=== PATIENT | male | born 1945 | race Caucasian/White ===

== ENCOUNTER → 2024-02-16 10:26 | Outpatient (REF) | payer MEDICARE, OTHER, SELFPAY | LOC: RCS 10:26 | PROVIDERS: ATTENDING PHYSICIAN Internal Medicine Cardiovascular Disease | DX: I34.0 Nonrheumatic mitral (valve) insufficiency (principal); I47.10 Supraventricular tachycardia, unspecified; R00.2 Palpitations; R07.89 Other chest pain | CPT/HCPCS: 93017; 93350 ==

== ENCOUNTER 2025-01-19 09:02 | Emergency (ER) | payer MEDICARE, OTHER, SELFPAY ==
[2025-01-19] VITALS (9 sets, daily range): BP systolic 153–182; BP diastolic 75–85; BMI 21.8
[2025-01-19 09:36] LABS: % Basophils 0.8 % (0-2); % Eosinophils 4.9 % (0-6); % Immature Granulocytes 0.4 % (0-0.5); % Lymphocytes 15.9 % (20.5-51.1); Absolute Eosinophils 0.3 10^3/uL (0-0.7); Absolute Lymphocytes 0.8 10^3/uL (1.2-3.4); Absolute Monocytes 0.5 10^3/uL (0.1-0.6); Absolute Neutrophils 3.6 10^3/uL (1.4-6.5); Hemoglobin 13.6 g/dL (13.0-18.0); Mean Corp Hgb Conc. 35.8 g/dL (33.0-37.0); Mean Corpuscular Hgb 35.1 pg (27.0-31.0); Mean Corpuscular Volume 98.2 fL (80.0-94.0); Mean Platelet Volume 8.6 fL (7.4-10.4); Nucleated Red Blood Cells % 0 % (-); Platelet Count 326 10^3/uL (130-400); Red Blood Cell Count 3.87 10^6/uL (4.70-6.10); Red Cell Dist. Width 14.9 % (11.5-14.5); White Blood Cell Count 5.3 10^3/uL (4.8-10.8)
--- NOTE | 2025-01-19 09:48 | ED.GENMED ---
History of Present Illness
General
Chief Complaint: Flank Pain
Source: patient
Time Seen by Provider: 01/19/25 09:13
History of Present Illness
History of Present Illness:
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 He describes this as a sudden onset of severe sharp shooting pain in his R flank radiating to his R groin. It's pretty
constant and worse with movement. There is associated nausea since onset of pain but no vomiting. He initially thought this to be a muscle spasm. He denies fevers, chest pain, shortness of breath, abdominal pain, vomiting, constipation, diarrhea,
dysuria, hematuria or hematochezia.
Review of Systems
Review of Systems
All Other Systems: ROS reviewed and negative except as documented in HPI and ROS
Constitutional: Reports no symptoms
EENT: Reports no symptoms
Respiratory: Reports no symptoms
Cardiac: Reports no symptoms
ABD/GI: Reports nausea
: Reports flank pain
Musculoskeletal: Reports back pain
Skin: Reports no symptoms
Neurological: Reports no symptoms
Endocrine: Reports no symptoms
Hematologic/Lymphatic: Reports no symptoms
Psychiatric: Reports no symptoms
Phy Exam
General Physical Exam
General Presentation: well appearing and no apparent distress
General age: appears stated age
General Habitus: normal and elderly
General Mental: alert
General Hydration: appears well hydrated
Cardiovascular Exam
Cardiovascular Exam: regular rate/rhythm and bradycardia
Heart Sounds: normal
Pulmonary Exam
Pulmonary Exam: lungs clear (Flank pain with inspiration) and no respiratory distress
Gastrointestinal Exam
Gastrointestinal Exam: normal bowel sounds, soft, no organomegaly, non distended and cva tenderness (Right)
Palpation: right upper quadrant: Minimal tenderness and right lower quadrant: Minimal tenderness
Auscultation of Abdomen: normal
Course
Orders/Labs/Results
Orders:
Orders
01/19/25 09:25
Complete Blood Count/With Diff Urgent
Comprehensive Metabolic Panel Urgent
01/19/25 10:06
CT Abd/pel Without Iv Or Oral Urgent
Comment:
Reason For Exam: r flank
0.9% Sodium Chloride 500 ml [Nss] 500 ml IV BOLUS
Ondansetron Injectable [Zofran] 4 mg IV NOW STA
01/19/25 10:07
HYDROmorphone [Dilaudid] 0.5 mg IV NOW STA
01/19/25 10:31
Urinalysis Reflex To Culture Urgent
Date Specimen was Collected: 01/19/25
Time Specimen was Collected: 10:31
Urine Microscopic Reflex Cult Urgent
01/19/25 11:25
HYDROmorphone [Dilaudid] 0.5 mg .ROUTE .STK-MED ONE
01/19/25 11:26
HYDROmorphone [Dilaudid] 0.5 mg IV NOW STA
01/19/25 14:17
Oxycodone [Roxicodone] 5 mg .ROUTE .STK-MED ONE
01/19/25 14:19
Oxycodone [Roxicodone] 5 mg PO NOW STA
Abnormal Lab Results
01/19/25 01/19/25
09:25 10:31
RBC 3.87 L 10^6/uL
(4.70-6.10)
Hct 38.0 L %
(39.0-52.0)
MCV 98.2 H fL
(80.0-94.0)
MCH 35.1 H pg
(27.0-31.0)
RDW 14.9 H %
(11.5-14.5)
Absolute Lymphs (auto) 0.8 L 10^3/uL
(1.2-3.4)
Lymphocytes % 15.9 L %
(20.5-51.1)
Monocytes % 10.0 H %
(1.7-9.3)
Sodium 134 L mmol/L
(135-145)
BUN 25 H mg/dl
(9-20)
Urine Albumin (Reflex) 1+ A
(Neg - Trace)
01/19/25 09:25
01/19/25 09:25
Vital Signs
Initial and Last Documented VS:
Initial Vital Signs
Temp Pulse Resp BP Pulse Ox
97.6 F 55 18 182/79 97
01/19/25 09:11 01/19/25 09:11 01/19/25 09:11 01/19/25 09:11 01/19/25 09:11
Last Documented Vital Signs
Temp Pulse Resp BP Pulse Ox
97.6 F 57 17 167/85 97
01/19/25 09:11 01/19/25 13:16 01/19/25 10:28 01/19/25 13:00 01/19/25 13:16
MDM/Problems Addressed
MDM/Problems Addressed:
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 Vitals signs stable. R CVA tenderness on exam. Pain improved with Dilaudid. CT abd/pelvis revealed '4 mm calculus at
the right ureterovesical junction with associated mild to moderate right hydroureteronephrosis. Partially calcified exophytic upper pole right renal mass measures up to 7.2 cm, highly suspicious for neoplasm.' Nephrology notified. Pt has appt next
week.
*Critical Care Note
Total Time (30-74mins, 75-104mins- exclusive of procedures): Not Applicable
ED Attending Note
-
Portions of this chart may have been created with voice recognition software.� Occasional wrong word or��sound alike� substitutions may have occurred due to the inherent limitations of voice recognition software.
Discharge Plan
Departure
Patient Disposition: Home (Routine Discharge)
Date of Disposition: 01/19/25
Time of Disposition: 14:11
Patient with high blood pressure during this ER visit?: No
Discharge Problem:
Kidney stone on right side
Instructions: Kidney Stones (DC), BLOOD PRESSURE
Prescriptions:
New
oxycodone 5 mg tablet
5 mg PO Q6H PRN (Reason: Pain) Qty: 12 0RF
No Action
meloxicam 15 MG tablet
15 mg PO DAILY
methotrexate sodium 2.5 MG tablet
15 mg PO .WEEKLY WED
cholecalciferol (vitamin D3) [Vitamin D3] 1,000 UNIT capsule
1,000 unit PO DAILY
[id number] [Rheumate (with Quatrefolic)] 1 EACH capsule
1 ea PO DAILY
mupirocin 1 APPLIC ointment
1 applic intranasal BID Qty: 1 0RF
sennosides [senna] 1 TABLET tablet
2 tab PO BID 0RF
acetaminophen 325 MG tablet
650 mg PO QID 0RF
magnesium hydroxide 30 ML suspension
30 ml PO DAILYPRN PRN (Reason: constipation) 0RF
aspirin 325 MG tablet,delayed release (DR/EC)
325 mg PO DAILY 0RF
docusate sodium 100 MG capsule
100 mg PO BID 0RF
diazepam 5 MG tablet
5 mg PO TIDPRN PRN (Reason: spasm) Qty: 30 0RF
oxycodone 5 MG tablet
5 mg PO Q4HPRN PRN (Reason: moderate-severe pain) Qty: 35 0RF
Rx Instructions:
dx ROB
ongoing therapy
1 tab moderate pain or 2 if pain severe
lisinopril 20 MG tablet
20 mg PO BID Qty: 0 0RF
Rx Instructions:
hold systolic blood pressure <130
amlodipine 5 MG tablet
5 mg PO DAILY Qty: 1 0RF
Rx Instructions:
hold systolic blood pressure <130
famotidine 20 MG tablet
20 mg PO HS Qty: 30 0RF
Referrals:
Gill Lua CRNP [Family Provider, Internal Medicine]
Radu Valle MD [Active, Urology]
Activity Restrictions/Additional Instructions:
Follow up with Dr. Valle regarding both the kidney stone but also the right kidney mass seen on CT. Return to ER if you develop a fever before you pass the stone.
Interventions
Interventions:
*Risk Screen - Suicide Last Done: 01/19/25 09:11
*General Assessment Last Done: 01/19/25 09:11
*Neglect/Abuse Screening Last Done: 01/19/25 09:11
*ED- Fall Risk Assessment Last Done: 01/19/25 09:18
*ED COVID-19 Vaccine History Last Done: 01/19/25 09:18
UV-Eaawar-Gxihgbuvgq Assessment Last Done: 01/19/25 10:45
ED-Male Genitourinary Assessment Last Done: 01/19/25 10:35
Discharge Date and Time
Print Language: FIJIAN
[2025-01-19 09:51] LABS: ALT (SGPT) 27 U/L (0-50); AST (SGOT) 33 U/L (17-59); Albumin 4.5 g/dl (3.5-5.0); Alkaline Phosphatase 38 U/L (38-126); Blood Urea Nitrogen 25 mg/dl (9-20); Carbon Dioxide 23 mmol/L (22-30); Chloride 104 mmol/L (98-107); Estimated Creatinine Clearance 57 ml/min; Glucose 93 mg/dl (70-99); Potassium 4.8 mmol/L (3.5-5.1); Sodium 134 mmol/L (135-145); Total Bilirubin 0.5 mg/dl (0.2-1.3); Total Protein 6.6 g/dl (6.3-8.2); eGFR > 60.00
[2025-01-19] MEDS: DILAUDID 0.5 MG IV ×2 (10:25→11:26)
[2025-01-19] MEDS: NSS 500 IV (10:25)
[2025-01-19] MEDS: ZOFRAN 4 MG IV (10:28)
[2025-01-19 10:53] LABS: Urine Albumin 1+ (Neg - Trace); Urine Bilirubin Negative (Negative); Urine Character Clear (Clear); Urine Color Yellow; Urine Glucose Negative (Negative); Urine Ketone Negative (Negative); Urine Leukocyte Negative (Negative); Urine Nitrite Negative (Negative); Urine Occult Blood Negative (Negative); Urine Urobilinogen Negative (Neg - 1+)
[2025-01-19 11:21] LABS: Urine Red Blood Cell 0-2 /HPF (0-2); Urine Squamous Cell 0-2 /LPF (Few)
[2025-01-19 11:22] LABS: Urine White Cell 0-2 /HPF (0-5)
[2025-01-19] MEDS: ROXICODONE 5 MG PO (14:20)
== END 2025-01-19 15:00 | disposition home or self-care (01) ==
LOC: EMR 09:02
PROVIDERS: EMERGENCY PHYSICIAN Emergency Medicine; FAMILY PHYSICIAN Nurse Practitioner Family
DX: N13.2 Hydronephrosis with renal and ureteral calculous obstruction (principal); M06.9 Rheumatoid arthritis, unspecified; I10 Essential (primary) hypertension; N28.89 Other specified disorders of kidney and ureter
CPT/HCPCS: 99284; 96374; 96375; 96376; 96361; 74176; 80053; 81003; 81015; 85025

== ENCOUNTER → 2025-01-27 09:45 | Outpatient (REF) | payer MEDICARE, OTHER, SELFPAY | LOC: MRI 09:45 | PROVIDERS: ATTENDING PHYSICIAN Urology | DX: N28.89 Other specified disorders of kidney and ureter (principal) | CPT/HCPCS: 74183; A9575 ==

== ENCOUNTER → 2025-01-30 10:26 | Outpatient (REF) | payer MEDICARE, OTHER, SELFPAY | LOC: RAD 10:26 | PROVIDERS: ATTENDING PHYSICIAN Urology | DX: N28.89 Other specified disorders of kidney and ureter (principal) | CPT/HCPCS: 71046; 78708; A9539 ==

== ENCOUNTER → 2025-02-22 10:19 | Outpatient (REF) | payer MEDICARE, OTHER, SELFPAY | LOC: RCS 10:19 | PROVIDERS: ATTENDING PHYSICIAN Hospitalist | DX: R06.02 Shortness of breath (principal) | CPT/HCPCS: 93306 ==

== ENCOUNTER → 2025-03-14 07:40 | Outpatient (REF) | payer MEDICARE, OTHER, SELFPAY | LOC: RCS 07:40 | PROVIDERS: ATTENDING PHYSICIAN Internal Medicine Cardiovascular Disease; FAMILY PHYSICIAN Hospitalist | DX: Z01.818 Encounter for other preprocedural examination (principal); R06.02 Shortness of breath; R07.89 Other chest pain; R26.2 Difficulty in walking, not elsewhere classified | CPT/HCPCS: 78452; 93017; A9500; J2785 ==

== ENCOUNTER → 2025-03-14 12:09 | Outpatient (REF) | payer MEDICARE, OTHER, SELFPAY | LOC: SDSPAT 12:09 | PROVIDERS: ATTENDING PHYSICIAN Urology; FAMILY PHYSICIAN Hospitalist | DX: N28.89 Other specified disorders of kidney and ureter (principal) | CPT/HCPCS: 36415; 86850; 86900; 86901 ==

== ENCOUNTER → 2025-03-21 12:51 | Outpatient (REF) | payer MEDICARE, OTHER, SELFPAY | LOC: RSP 12:51 | PROVIDERS: ATTENDING PHYSICIAN Hospitalist | DX: R00.2 Palpitations (principal); R06.02 Shortness of breath | CPT/HCPCS: 93225; 93226; 94010 ==

== ENCOUNTER 2025-03-30 06:20 | Day surgery (SDC) | payer MEDICARE, OTHER, SELFPAY ==
[2025-03-14 14:08] VITALS: BMI 20.6
[2025-03-30] VITALS (19 sets, daily range): BP systolic 114–143; BP diastolic 65–91; BMI 20.6
[2025-03-30 10:44] LABS: B.E. - POC -3.4 mmol/L; Glucose - POC 153 mg/dl (70-99); HCO3 - POC 25 mmol/L (21-28); Hematocrit - POC 35 % PCV (42-52); Hemodilution- POC Yes; Hemoglobin Calculated - POC 12.0; Ionized Calcium - POC 1.22 mmol/L (1.15-1.33); Lactate - POC < 0.30 mmol/L (0.36-0.75); O2 Saturation %Calculated-POC 99.7 % (94-98); PCO2 - POC 62 mmHg (35-48); PO2 - POC 243 mmHg (83-108); Potassium - POC 4.5 mmol/L (3.5-5.1); Sodium - POC 138 mmol/L (136-145); Specimen Type - POC Arterial; pH - POC 7.22 (7.35-7.45)
--- NOTE | 2025-03-30 12:23 | W.IMMPOSTOP ---
Surgical Immed Post Op Note
-
Primary Surgeon: Tori
Assisting Surgeon: none
Pre-op Diagnosis: R renal mass
Post-op Diagnosis: same
Procedure Performed: Robotic R partial nephrectomy
Anesthesia Type: general
Specimen / Cultures: R renal mass
Estimated Blood Loss: 30cc
Complications: none
Operative Findings: negative deep margin frozen section
[2025-03-30] MEDS: DILAUDID 0.5 MG IV (13:20)
[2025-03-30 13:26] LABS: Hematocrit 33.8 % (39.0-52.0); Hemoglobin 11.9 g/dL (13.0-18.0); Mean Corp Hgb Conc. 35.2 g/dL (33.0-37.0); Mean Corpuscular Volume 98.5 fL (80.0-94.0); Platelet Count 250 10^3/uL (130-400); Red Cell Dist. Width 14.5 % (11.5-14.5)
--- NOTE | 2025-03-30 13:34 | PTCARENOTE ---
1327 Left a-line removed as per order. 2x2 dressing placed at site. Positive left radial pulse and no hematoma noted.
[2025-03-30 13:36] LABS: Blood Urea Nitrogen 21 mg/dl (9-20); Calcium 8.2 mg/dl (8.4-10.2); Carbon Dioxide 23 mmol/L (22-30); Chloride 104 mmol/L (98-107); Estimated Creatinine Clearance 65 ml/min; Glucose 129 mg/dl (70-99); Potassium 4.7 mmol/L (3.5-5.1); Sodium 132 mmol/L (135-145); eGFR > 60.00
[2025-03-30] MEDS: DILAUDID 0.25 MG IV (14:13)
[2025-03-30] MEDS: PERCOCET 5/325 1 TABLET PO ×2 (15:33→21:55)
[2025-03-30] MEDS: NORMOSOL-R/PLASMALYTE-A 1000 IV ×3 (15:34→21:55)
[2025-03-30] MEDS: SENOKOT 17.2 MG PO (21:55)
--- NOTE | 2025-03-30 23:30 | PTCARENOTE ---
Assumed care of pt at 23:15. Pt AOx3, bed in a low position, call light in reach, pain assessed, care ongoing.
[2025-03-31] MEDS: PERCOCET 5/325 2 TABLET PO (02:25)
[2025-03-31 03:00] VITALS: BP 139/74
[2025-03-31 07:52] LABS: Hematocrit 34.3 % (39.0-52.0); Hemoglobin 12.0 g/dL (13.0-18.0); Mean Corp Hgb Conc. 35.0 g/dL (33.0-37.0); Mean Corpuscular Volume 97.7 fL (80.0-94.0); Platelet Count 279 10^3/uL (130-400); Red Cell Dist. Width 14.5 % (11.5-14.5)
[2025-03-31 07:55] VITALS: BP 134/73
[2025-03-31 08:21] LABS: Blood Urea Nitrogen 17 mg/dl (9-20); Calcium 8.5 mg/dl (8.4-10.2); Carbon Dioxide 26 mmol/L (22-30); Chloride 101 mmol/L (98-107); Estimated Creatinine Clearance 53 ml/min; Glucose 79 mg/dl (70-99); Potassium 4.4 mmol/L (3.5-5.1); Sodium 132 mmol/L (135-145); eGFR > 60.00
--- NOTE | 2025-03-31 08:52 | W.PN.URO.CBU ---
Today's Communication / Plan
-
Discharge
Assessment / Plan
-
80M with R renal mass
POD 1 s/p R partial nephrectomy
- Routine post op
- vitals/labs stable with no signs of bleeding post op
- ambulate
- reg diet
- avalos out
-Discharge
Diagnosis
-
Date of Service: March 31, 2025
-
Patient Diagnosis:
R renal mass
Post Op Day: 1 s/p R partial nephrectomy
Subjective
-
some abdominal pain/bloating overnight
ambulated
pain controlled
tolerating diet
Objective
-
Vital Signs
Temp Pulse Resp BP Pulse Ox
98.2 F 61 16 139/74 93
03/31/25 03:00 03/31/25 03:00 03/31/25 03:00 03/31/25 03:00 03/31/25 03:00
Intake and Output
03/30/25 03/31/25 04/01/25
06:59 06:59 06:59
Intake Total 2180 / 2180
Output Total 2675 / 2675
Balance -495 / -495
Intake:
Oral fluids 480 / 480
IV fluids (Total) 1700 / 1700
normasol 200 / 200
Output:
Urine, Avalos 2675 / 2675
Laboratory Results
03/31/25 06:55
03/31/25 06:55
Physical Exam
-
General - well developed, well nourished, no acute distress
Chest - clear bilaterally
Abdomen - soft, non-tender, positive bowel sounds, no CVAT, no incisional pain or distention
Genitalia - normal
Rectal - normal
Skin - warm & dry with no rash
Neuro - AOx3, no motor deficits
Incision - clean, dry
Dressing - clean, dry, intact
[2025-03-31] MEDS: PERCOCET 5/325 1 TABLET PO (09:20)
[2025-03-31] MEDS: MILK OF MAGNESIA 30 ML PO (09:20)
[2025-03-31] MEDS: TOPROL XL 12.5 MG PO (09:22)
[2025-03-31] MEDS: ZESTRIL 20 MG PO (09:25)
[2025-03-31] MEDS: ASPIR LOW (ENTERIC COATED) 81 MG PO (09:26)
[2025-03-31] MEDS: SENOKOT 17.2 MG PO (09:26)
== END 2025-03-31 10:50 | disposition home or self-care (01) ==
LOC: SDS 06:20
PROVIDERS: ATTENDING PHYSICIAN Urology
DX: C64.1 Malignant neoplasm of right kidney, except renal pelvis (principal); N28.89 Other specified disorders of kidney and ureter
CPT/HCPCS: 50543; 80048; 85027; 86920; 88305; 88307; 88331